=== PATIENT | female | born 1940 | race Caucasian/White ===

== ENCOUNTER 2017-08-31 10:30 | Inpatient (IN) ==
[2017-08-31 11:30] LABS: MANUAL DIFF NEEDED? NO
[2017-08-31] MEDS ORDERED: ZOFRAN IV ONE (11:31)
[2017-08-31 11:37] LABS: BASO% 0.3 % (0.0-0.8); EOS# 0.02 X1000 (0.0-0.7); EOS% 0.2 % (0.0-10.0); HEMATOCRIT 37.6 % (37.0-47.0); HEMOGLOBIN 12.3 g/dL (12.0-16.0); IMM GRAN# 0.05 X1000 (0.0-0.04); IMM GRAN% 0.6 % (0.0-0.5); LYMPH# 1.44 X1000 (1.2-3.4); LYMPH% 16.2 % (20.5-51.1); MCH 31.1 PG (27-31); MCHC 32.7 g/dL (33-37); MCV 94.9 FL (81-99); MONO# 0.66 X1000 (0.11-0.59); MONO% 7.4 % (1.7-9.3); MPV 10.3 FL (7.4-10.4); NEUT% 75.3 % (42.2-75.2); PLT 328 X1000 (130-400); RBC 3.96 XMIL (4.2-5.4)
[2017-08-31 11:54] LABS: ALBUMIN 4.6 g/dL (3.5-5.0); CALCIUM 10.1 mg/dL (8.8-10.2); POTASSIUM 4.2 mmol/L (3.5-5.1); TOTAL BILIRUBIN 0.14 mg/dL (0.20-1.00); TOTAL PROTEIN 7.4 g/dL (6.3-8.3)
[2017-08-31] MEDS ORDERED: PROTONIX IV ONE (12:20)
[2017-08-31] MEDS ORDERED: SODIUM CHLORIDE 0.9% INJ ONE ×2 (12:20→14:43)
[2017-08-31] MEDS ORDERED: NS 1,000 ML IV ONE (12:24)
[2017-08-31 14:40] LABS: INR 1.04; PROTIME 10.9 Seconds (9.2-11.7)
[2017-08-31] MEDS ORDERED: ZOFRAN IV PRN (14:43)
--- NOTE | 2017-08-31 15:58 | Diag Imaging Result Doc PS360 ---
EXAM: FLAT/UPRIGHT ABD/1 VIEW CHEST INDICATION: abdominal pain, gi bleed TECHNIQUE: 3 views COMPARISON: 01/30/2014 FINDINGS: There are nonspecific bowel gas and stool patterns. There is mild small bowel distention in the left side of the abdomen. There is nothing specific for obstruction, however. There is no evidence of large volume free abdominal gas. There is no evidence of organomegaly. The lungs are grossly clear. There is no discrete pleural fluid collection or pneumothorax. The cardiomediastinal silhouette and central vasculature are grossly unremarkable. IMPRESSION: Nonspecific abdomen. Electronically signed by Kirt Lyn 08/31/2017 3:55 PM
[2017-08-31 16:22] LABS: URINE CULTURE NEEDED? NO; URINE MICRO REVIEW NEEDED? NO; URINE SOURCE CLEAN CATCH
[2017-08-31 16:28] LABS: BILIRUBIN URINE NEGATIVE (NEGATIVE); BLOOD URINE NEGATIVE (NEGATIVE); COLOR YELLOW; GLUCOSE URINE NEGATIVE (NEGATIVE); LEUKOCYTES URINE NEGATIVE (NEGATIVE); NITRITE URINE NEGATIVE (NEGATIVE); PH URINE 5.5; PROTEIN URINE NEGATIVE (NEGATIVE); TURBIDITY URINE CLEAR (CLEAR); UR EPITHELIAL CELLS <10 /HPF (<10); URINE BACTERIA NEGATIVE /HPF; URINE RBC <10 /HPF (<10); URINE WBC <10 /HPF (<10); UROBILINOGEN URINE NORMAL (NORMAL)
[2017-08-31] MEDS: NS 1,000 ML IV SCH (17:20)
[2017-08-31] MEDS: PROTONIX IV SCH (17:20)
[2017-08-31 18:00] LABS: HEMATOCRIT 31.6 % (37.0-47.0); HEMOGLOBIN 10.3 g/dL (12.0-16.0)
[2017-09-01 01:18] LABS: HEMATOCRIT 30.7 % (37.0-47.0); HEMOGLOBIN 9.7 g/dL (12.0-16.0)
[2017-09-01] MEDS: PROTONIX IV SCH ×2 (03:36→15:51)
[2017-09-01 05:57] LABS: HEMATOCRIT 30.1 % (37.0-47.0); HEMOGLOBIN 9.4 g/dL (12.0-16.0); MCH 31.1 PG (27-31); MCHC 31.2 g/dL (33-37); MCV 99.7 FL (81-99); MPV 10.6 FL (7.4-10.4); RBC 3.02 XMIL (4.2-5.4)
[2017-09-01 06:12] LABS: CALCIUM 9.1 mg/dL (8.8-10.2); POTASSIUM 3.9 mmol/L (3.5-5.1)
[2017-09-01] MEDS: NS 1,000 ML IV SCH ×2 (07:00→18:28)
[2017-09-01] MEDS ORDERED: SODIUM CHLORIDE 0.9% 10 ML ONE (10:49)
[2017-09-01] MEDS ORDERED: DIPRIVAN 1% ONE ×2 (14:11→14:59)
[2017-09-01] MEDS ORDERED: XYLOCAINE-MPF 2% ONE (14:11)
[2017-09-01] MEDS ORDERED: EPINEPHRINE SYRINGE ONE (14:51)
[2017-09-01] MEDS: ULTRAM PO PRN (18:29)
[2017-09-01] MEDS: PERIDEX MT SCH (21:58)
[2017-09-02] MEDS: ULTRAM PO PRN (02:00)
[2017-09-02] MEDS: PROTONIX IV SCH ×2 (04:10→14:28)
[2017-09-02 06:19] LABS: HEMATOCRIT 28.7 % (37.0-47.0); HEMOGLOBIN 8.9 g/dL (12.0-16.0); MCH 31.1 PG (27-31); MCV 100.3 FL (81-99); MPV 10.3 FL (7.4-10.4); RBC 2.86 XMIL (4.2-5.4)
[2017-09-02 06:42] LABS: AGAP 14; BUN 23 mg/dL (8-22); CALCIUM 8.8 mg/dL (8.8-10.2); CHLORIDE 106 mmol/L (98-107); COSMO 293; POTASSIUM 3.8 mmol/L (3.5-5.1); SODIUM 145 mmol/L (136-145); TCO2 25 mmol/L (25-35)
[2017-09-02] MEDS: NS 1,000 ML IV SCH (08:00)
[2017-09-02] MEDS: PERIDEX MT SCH ×2 (09:21→20:41)
[2017-09-02] MEDS ORDERED: SODIUM CHLORIDE 0.9% 10 ML ONE (13:25)
[2017-09-02] MEDS: TYLENOL PO PRN ×2 (14:33→14:39)
[2017-09-02] MEDS ORDERED: SODIUM CHLORIDE 0.9% INJ SCH (19:00)
[2017-09-02] MEDS ORDERED: G.I. COCKTAIL PO ONE (19:48)
[2017-09-02] MEDS ORDERED: BENADRYL PO PRN (19:49)
[2017-09-03] MEDS: TYLENOL PO PRN ×2 (00:42→13:05)
[2017-09-03] MEDS: PROTONIX IV SCH ×2 (03:51→15:49)
[2017-09-03 06:21] LABS: HEMATOCRIT 27.2 % (37.0-47.0); HEMOGLOBIN 8.6 g/dL (12.0-16.0); MCH 31.9 PG (27-31); MCHC 31.6 g/dL (33-37); MCV 100.7 FL (81-99); MPV 10.4 FL (7.4-10.4); RBC 2.7 XMIL (4.2-5.4)
[2017-09-03 06:39] LABS: AGAP 11; BUN 13 mg/dL (8-22); CALCIUM 10.2 mg/dL (8.8-10.2); CHLORIDE 103 mmol/L (98-107); COSMO 287; POTASSIUM 4.3 mmol/L (3.5-5.1); SODIUM 144 mmol/L (136-145); TCO2 30 mmol/L (25-35)
[2017-09-03] MEDS: ULTRAM PO PRN ×2 (09:31→18:34)
[2017-09-03] MEDS: VITAMIN B-12 PO SCH (09:31)
[2017-09-03] MEDS: FOLIC ACID PO SCH (09:31)
[2017-09-03] MEDS: PERIDEX MT SCH (09:34)
[2017-09-03] MEDS ORDERED: MILK OF MAGNESIA PO ONE (16:23)
[2017-09-03] MEDS ORDERED: DULCOLAX PR PRN (16:23)
[2017-09-03] MEDS ORDERED: MILK OF MAGNESIA PO PRN (16:23)
[2017-09-03] MEDS ORDERED: LOVAZA PO PRN ×2 (18:19→18:31)
[2017-09-03] MEDS ORDERED: PRINIVIL PO SCH (18:30)
[2017-09-03] MEDS ORDERED: LOZOL PO SCH (18:30)
[2017-09-03] MEDS ORDERED: TOPROL XL PO SCH (18:30)
[2017-09-03] MEDS: TOPROL XL PO SCH (19:11)
[2017-09-03] MEDS: PRINIVIL PO SCH (19:11)
[2017-09-03] MEDS: LOZOL PO SCH (19:11)
[2017-09-03] MEDS ORDERED: PRAVACHOL PO SCH ×2 (21:00)
[2017-09-04] MEDS: PERIDEX MT SCH ×2 (00:12→09:00)
[2017-09-04] MEDS: NORVASC PO SCH ×3 (00:13→10:51)
[2017-09-04] MEDS: PROTONIX IV SCH (04:12)
[2017-09-04 05:40] LABS: MANUAL DIFF NEEDED? NO
[2017-09-04 05:47] LABS: BASO% 0.4 % (0.0-0.8); EOS# 0.14 X1000 (0.0-0.7); EOS% 2.8 % (0.0-10.0); HEMATOCRIT 30.1 % (37.0-47.0); HEMOGLOBIN 9.4 g/dL (12.0-16.0); IMM GRAN# 0.02 X1000 (0.0-0.04); IMM GRAN% 0.4 % (0.0-0.5); LYMPH# 1.91 X1000 (1.2-3.4); LYMPH% 37.7 % (20.5-51.1); MCH 30.5 PG (27-31); MCHC 31.2 g/dL (33-37); MCV 97.7 FL (81-99); MONO# 0.74 X1000 (0.11-0.59); MONO% 14.6 % (1.7-9.3); MPV 10.1 FL (7.4-10.4); NEUT% 44.1 % (42.2-75.2); PLT 245 X1000 (130-400); RBC 3.08 XMIL (4.2-5.4)
--- NOTE | 2017-09-04 05:57 | EKG Report ---
Test Performed on : 09/01/2017 11:44:57 PM Test Reason : chest pain Blood Pressure : / mmHG Vent. Rate : 076 BPM Atrial Rate : 076 BPM P-R Int : 142 ms QRS Dur : 082 ms QT Int : 390 ms P-R-T Axes : 065 032 189 degrees QTc Int : 438 ms Normal sinus rhythm. Nonspecific ST and T wave abnormality Abnormal ECG When compared with ECG of 23-JAN-2014 12:02, No significant change was found Confirmed by Keara GRIMALDO, Da Laurent ([id number]) on 09/04/2017 9:10:29 AM
--- NOTE | 2017-09-04 06:01 | EKG Report ---
Test Performed on : 09/02/2017 7:53:55 PM Test Reason : CP Blood Pressure : / mmHG Vent. Rate : 076 BPM Atrial Rate : 076 BPM P-R Int : 136 ms QRS Dur : 082 ms QT Int : 454 ms P-R-T Axes : 065 028 090 degrees QTc Int : 510 ms Normal sinus rhythm. ST \T\ T wave abnormality, consider lateral ischemia Prolonged QT Abnormal ECG When compared with ECG of 02-SEP-2017 01:11, (Unconfirmed) QT has lengthened Confirmed by Keara GRIMALDO, Da Laurent ([id number]) on 09/04/2017 9:11:15 AM
[2017-09-04 06:08] LABS: AGAP 12; BUN 10 mg/dL (8-22); CALCIUM 9.5 mg/dL (8.8-10.2); CHLORIDE 100 mmol/L (98-107); COSMO 281; POTASSIUM 3.9 mmol/L (3.5-5.1); SODIUM 141 mmol/L (136-145); TCO2 29 mmol/L (25-35)
--- NOTE | 2017-09-04 06:12 | EKG Report ---
Test Performed on : 09/02/2017 01:11:39 AM Test Reason : No Order in [facility] Blood Pressure : / mmHG Vent. Rate : 066 BPM Atrial Rate : 066 BPM P-R Int : 142 ms QRS Dur : 084 ms QT Int : 424 ms P-R-T Axes : 068 044 244 degrees QTc Int : 444 ms Normal sinus rhythm. ST \T\ T wave abnormality, consider inferolateral ischemia Abnormal ECG When compared with ECG of 01-SEP-2017 23:45, (Unconfirmed) premature ventricular complexes. are no longer present QT has shortened Confirmed by Keara GRIMALDO, Da Laurent ([id number]) on 09/04/2017 9:10:33 AM
[2017-09-04] MEDS: FOLIC ACID PO SCH ×2 (08:28→10:50)
[2017-09-04] MEDS: PRINIVIL PO SCH ×2 (08:28→10:50)
[2017-09-04] MEDS: VITAMIN B-12 PO SCH ×2 (08:28→10:48)
[2017-09-04] MEDS: LOZOL PO SCH ×2 (08:29→10:50)
[2017-09-04] MEDS: TOPROL XL PO SCH ×2 (08:29→10:50)
[2017-09-04] MEDS ORDERED: LOZOL PO SCH (09:00)
[2017-09-04] MEDS ORDERED: PRINIVIL PO SCH (09:00)
[2017-09-04 11:24] VITALS: BP 137/60
[2017-09-05] MEDS ORDERED: PRILOSEC PO SCH (07:00)
== END 2017-09-04 13:11 | disposition home or self-care (01) ==
LOC: ED 10:30 → EDIPHOLD 12:34 → SUATTDRO 12:34 → 4N 18:26
PROVIDERS: ATTEND Internal Medicine